=== PATIENT | female | born 1960 | race African-American/Black ===

== ENCOUNTER 2020-08-25 10:00 | Outpatient (RCR) | payer MEDICAID, SELFPAY | END 2020-08-26 11:21 | disposition other institution (70) | LOC: HO.PT 10:00 | PROVIDERS: PCP Internal Medicine; Visit Provider Internal Medicine | DX: M25.511 Pain in right shoulder (principal) | CPT/HCPCS: 97014; 97110; 97140 ==

== ENCOUNTER 2020-08-26 12:21 | Outpatient (REF) | payer MEDICAID, SELFPAY ==
--- NOTE | 2020-08-26 12:27 | MM_ITS ---
EXAMINATION: MM SCREENING DIGITAL BREAST TOMOSYNTHESIS, BILATERAL CLINICAL INFORMATION: Screening. Asymptomatic. Prior outside mammography from [place] currently unavailable. No known family history breast cancer. Personal history benign right breast excisional biopsy performed in [place] 1993. The lifetime risk of breast cancer based on the Tyrer-Cuzick Model is 6%. COMPARISON: None. TECHNIQUE: Digital breast tomosynthesis is performed in both the craniocaudal and mediolateral oblique views along with computer-aided detection (CAD). Synthesized 2D images are generated from the tomosynthesis. FINDINGS: There are scattered areas of fibroglandular density (ACR BI-RADS breast composition Category b). Breast tissue composition borders on predominantly fatty. There is no significant mass or architectural abnormality or abnormal calcifications. Fine benign appearing fibronodular stromal markings are present with the largest nodule only 5 mm, smooth and circumscribed, central right breast. The axilla and skin contours are unremarkable. MM/MM tomosynthesis screening BI IMPRESSION: Scattered benign-appearing fine fibronodular changes. No abnormal calcifications or architectural abnormality. ASSESSMENT: BI-RADS 2: Benign RECOMMENDATION: Routine annual mammography screening. This patient's information was entered into a reminder system with a target due date for their next mammogram.
== END 2020-08-26 12:22 | disposition home or self-care (01) ==
LOC: HO.MAMMO 12:21
PROVIDERS: PCP Internal Medicine; Visit Provider Internal Medicine
DX: Z12.31 Encounter for screening mammogram for malignant neoplasm of breast (principal)
CPT/HCPCS: 77063; 77067

== ENCOUNTER → 2020-08-30 13:00 | Outpatient (BNVA) | payer MEDICAID, SELFPAY | PROVIDERS: PCP Internal Medicine; Referring Provider Internal Medicine; Visit Provider Physician Assistant | DX: Z12.11 Encounter for screening for malignant neoplasm of colon (principal); E78.5 Hyperlipidemia, unspecified; I10 Essential (primary) hypertension; Z79.899 Other long term (current) drug therapy | CPT/HCPCS: 99212 ==

== ENCOUNTER → 2020-09-01 10:01 | Outpatient (BNVA) | payer MEDICAID, SELFPAY | PROVIDERS: Visit Provider Orthopaedic Surgery | DX: M75.41 Impingement syndrome of right shoulder (principal) | CPT/HCPCS: 20610; 99202; J1100 ==

== ENCOUNTER 2020-11-04 06:33 | Day surgery (SDC) | payer MEDICAID, SELFPAY ==
[2020-10-31 11:06] VITALS: BMI 39.0
--- NOTE | 2020-11-02 10:59 | HO.ANESPROP2 ---
Documented by User: Chari Weldon 11/02/20 11:00 HPI - Anesthesia Eval Consult details Narrative: 60yo F for Colonoscopy [facility] LAT[facility] Past Medical History Medical History Breast mass Dyslipidemia HTN (hypertension) Impingement syndrome of right shoulder Obesity Family History Family History Unknown No family history of colorectal cancer Surgical History Surgical History H/O tubal ligation History of cholecystectomy Social History Social History Alcohol intake: never Smoking Status: Former smoker Smoking Quit Date: 1996 Use of substances other than those prescribed or required for medical reasons: No Advance Directives: No Advance Directives Information Provided: No Advance Directives on File: No Current occupational status: unemployed Current occupation: right handed Meds Allergies Allergy/AdvReac Type Severity Reaction Status Date / Time No Known Allergies Allergy Verified 10/31/20 11:02 [No Known Allergies*] Home Medications Medication Instructions Recorded Confirmed Type lisinopril 40 mg tablet 40 mg PO DAILY 08/30/20 10/31/20 History famotidine 20 mg PO BEDTIME 10/31/20 10/31/20 History simvastatin 20 mg PO BEDTIME 10/31/20 10/31/20 History Exam Exam Date and Time: November 02, 2020 1059 Height,Weight and Vital Signs: Height 5 ft 6 in Weight 109.769 kg Assessment and Plan Assessment Anesthesia Assessment: Chart Reviewed Documented by User: Gabi Rice 11/04/20 08:22 [facility] Past Medical History Medical History Breast mass Dyslipidemia HTN (hypertension) Impingement syndrome of right shoulder Obesity Family History Family History Unknown No family history of colorectal cancer Surgical History Surgical History H/O tubal ligation History of cholecystectomy Social History Social History Alcohol intake: never Smoking Status: Former smoker Smoking Quit Date: 1996 Use of substances other than those prescribed or required for medical reasons: No Advance Directives: No Advance Directives Information Provided: No Advance Directives on File: No Current occupational status: unemployed Current occupation: right handed Meds Allergies Allergy/AdvReac Type Severity Reaction Status Date / Time No Known Allergies Allergy Verified 10/31/20 11:02 [No Known Allergies*] Home Medications Medication Instructions Recorded Confirmed Type lisinopril 40 mg tablet 40 mg PO DAILY 08/30/20 10/31/20 History famotidine 20 mg PO BEDTIME 10/31/20 10/31/20 History simvastatin 20 mg PO BEDTIME 10/31/20 10/31/20 History Exam Airway Mallampati Class: II TM Dist: >3cm Neck ROM: Full Assessment and Plan Assessment Anesthesia Assessment: Anesthesia Plan Discussed and Chart Reviewed Final Anesthetic Review NPO: Yes ASA Class: II Final Preanesthetic Review: No Changes in Pt Med Stat and Consent Obtained/Reviewed Patient Risk: Low Procedure Risk: Low Assessment/Block/Sedation in SS: Assess/Block/Sedation-SS Anesthetic Plan Anesthetic Plan: MAC: Disposition: Standard PACU
[2020-11-04 07:03] VITALS: BP 115/71; PULSE 79; RESP 18; TEMP 36.6
--- NOTE | 2020-11-04 08:10 | P.OP_ITS ---
Operative Note Operative Note Date of Service: 11/04/20 Narrative: Pre-op diagnosis: Colon cancer screening, constipation Post-op diagnosis: other (colon polyps, diverticulosis) Procedure: COLONOSCOPY TILL CECUM WITH BIOPSIES Consent: Indications for the procedure and potential complications of bleeding, perforation, reaction to medications and missed diagnosis were discussed with the patient with the help of a Finance Intern and informed consent was obtained. Instrument: Olympus PCF H 190 L variable stiffness pediatric colonoscope Monitoring: Vital signs and clinical assessment, intermittent blood pressure monitoring, continuous EKG monitoring, Pulse oximetry and Carbon Dioxide monitoring were done throughout the procedure. Colon withdrawl time was 15 minutes. Procedure: The patient was placed in the left lateral decubitis position and pre-procedure medications were administered. After a digital rectal examination of the ano-rectum, the video colonoscope was inserted into the rectum and advanced through the colon to the cecum. The colonoscope was slowly withdrawn in a retrograde panoramic fashion and the colon mucosa was carefully examined including a retroflexed view of the rectum. Findings and interventions are described below. Procedure Difficulty: Without difficulty Findings: Terminal Ileum: Not evaluated Cecum: Normal Ascending Colon: Normal Transverse Colon: A 3-4 mm sessile polyp removed with a cold bx. Descending Colon: Moderate diverticulosis Sigmoid Colon: Moderate diverticulosis Rectum: Normal Ano-rectum: Perianal skin tags Colon preparation: Good Impression and Post Procedure Diagnosis: Colonoscopy Findings: Two small polyps removed Moderate diverticulosis seen in the left colon Plan: Await pathology results Patient has an appointment on 11/24/20 in the GI Clinic with GAVIN Jesus. Repeat Colonoscopy interval based on path results - in 5 years if polyps are adenomatous and 10 years if polyps are hyperplastic. Above findings were reviewed with the patient and colon polyps and diverticulosis handouts were given in the discharge area Surgeon: Rickey Alfred MD Anesthesia: MAC (Dr Rice) Ornamental Ironworker Helper: Chay Werner Estimated blood loss (mL): 0 Pathology: other (A. TC polyp x 1, B. SC polyp x 1) Condition: stable Disposition: PACU
--- NOTE | 2020-11-04 08:10 | MHC.SHP ---
Pre-Procedural Eval Section A The patient is an INPATIENT: No The History & Physical has been completed within 30 days and I have reviewed it.: No Section B Chief Complaint: Screening Details of Present Illness: colon cancer screening, constipation Relevant Family History (Specify if Yes): No Present Medications: see Short Stay Collaborative assessment Medical History: Significant History (Breast mass Dyslipidemia HTN (hypertension)) History of Previous Operations: Relevant previous surgery/procedure and date(s) (Tubal ligation, cholecystectomy) Allergies: Allergies Allergy/AdvReac Type Severity Reaction Status Date / Time No Known Allergies Allergy Verified 10/31/20 11:02 [No Known Allergies*] Review of Systems Sugical H&P ROS: Negative: Constitution, Cardiovascular and Respiratory and Yes, Specify: Gastrointestinal (constipation) Exam Surgical H&P Exam: Normal: Heart, Normal: Lungs, Normal: Extremities and Normal: Abdomen Plan Diagnosis/Plan: Unchanged I have reviewed the history and physical and performed a pertinent physical examination on my patient. No changes have occurred unless specified.
[2020-11-04 09:12] VITALS: BP 101/49; PULSE 80; RESP 16; TEMP 36.1; O2SAT 98
[2020-11-04 09:27] VITALS: BP 118/76; PULSE 67; RESP 17; TEMP 36.2; O2SAT 97
--- NOTE | 2020-11-04 09:50 | HO.POSTANES ---
Post Anesthesia Evaluation Post Anesthesia Evaluation Vital Signs: Vital Signs Temp Pulse Resp BP Pulse Ox 11/04/20 09:27 97.2 F 67 17 118/76 97 11/04/20 09:12 97.0 F 80 16 101/49 L 98 11/04/20 07:03 98 F 79 18 115/71 Anesthesia: General (tiva) Mental Status: Awake Pain Control: Satisfactory Nausea/Vomiting: None Hydration: Adequate Anesthesia-Related Issues: No Anes. Related Issues
== END 2020-11-04 09:58 | disposition home or self-care (01) ==
PROVIDERS: PCP Internal Medicine; Visit Provider Internal Medicine Gastroenterology
PROC: 0DJD8ZZ Inspection of Lower Intestinal Tract, Via Natural or Artificial Opening Endoscopic (ICD-10-PCS; CPT 45378; principal; 2020-11-04 08:30)
DX: Z12.11 Encounter for screening for malignant neoplasm of colon (principal); K63.5 Polyp of colon; K57.30 Diverticulosis of large intestine without perforation or abscess without bleeding; K64.8 Other hemorrhoids; K59.00 Constipation, unspecified; I10 Essential (primary) hypertension; Z90.49 Acquired absence of other specified parts of digestive tract; Z79.899 Other long term (current) drug therapy; Z87.891 Personal history of nicotine dependence
CPT/HCPCS: 45380; 88305

== ENCOUNTER → 2020-11-24 13:00 | Outpatient (BNVA) | payer MEDICAID, SELFPAY | PROVIDERS: PCP Internal Medicine; Visit Provider Physician Assistant ==

== ENCOUNTER → 2020-12-01 08:24 | Outpatient (BNVA) | payer MEDICAID, SELFPAY | PROVIDERS: PCP Internal Medicine; Visit Provider Physician Assistant ==

== ENCOUNTER 2020-12-28 07:56 | Outpatient (REF) | payer MEDICAID, SELFPAY ==
--- NOTE | ~2020-12-28 | US_ITS ---
EXAMINATION: US ABDOMEN COMPLETE CLINICAL INFORMATION: Right upper quadrant pain. COMPARISON: None TECHNIQUE: Real-time imaging of the abdominal viscera. FINDINGS: PANCREAS: Normal. ABDOMINAL AORTA: The proximal, mid, and distal segments are normal in caliber. INFERIOR VENA CAVA: Visualized portions are normal. LIVER: The liver is normal in size. The liver contour is normal. Parenchymal echogenicity is increased. No focal hepatic lesion. There is no intrahepatic biliary duct dilatation seen. GALLBLADDER: Surgically removed. COMMON BILE DUCT: Normal in caliber measuring 0.5 cm in diameter. RIGHT KIDNEY: Normal. No hydronephrosis. No renal calculi or focal parenchymal lesions. The kidney measures 11 cm in maximum dimension. LEFT KIDNEY: Normal. No hydronephrosis. No renal calculi or focal parenchymal lesions. The kidney measures 12 cm in maximum dimension. SPLEEN: Normal. The spleen measures 11 cm in maximum dimension. FREE FLUID: None. US/US abdomen complete IMPRESSION: Echogenic liver probably representing fatty infiltration otherwise unremarkable exam.
== END 2020-12-28 07:57 | disposition home or self-care (01) ==
LOC: HO.US 07:56
PROVIDERS: PCP Internal Medicine; Visit Provider Physician Assistant
DX: R10.11 Right upper quadrant pain (principal); G89.29 Other chronic pain
CPT/HCPCS: 76700

== ENCOUNTER 2021-01-12 12:17 | Outpatient (REF) | payer MEDICAID, SELFPAY ==
--- NOTE | ~2021-01-12 | XR_ITS ---
EXAMINATION: AP KNEE STANDING AND RIGHT KNEE 2 VIEWS CLINICAL INFORMATION: Pain. COMPARISON: None. TECHNIQUE: AP bilateral knees standing one view. Right knee 2 views. FINDINGS: AP BILATERAL KNEE: There is a genu valgus deformity of both knees with severe loss of medial and lateral compartment joint space. There is moderate periarticular spurring. No loose bodies or bony erosive changes seen. No fracture noted. RIGHT KNEE: There is severe loss of patellofemoral compartment joint space with moderate periarticular spurring. There is a small to moderate joint effusion. No loose body seen. XR/XR knee RT 2V IMPRESSION: Significant advanced degenerative changes in the tricompartment right knee. There is small to moderate suprapatellar joint effusion. Advanced degenerative changes medial and lateral compartment, right knee. Genu valgus deformity of both knees on AP standing.
--- NOTE | ~2021-01-12 | XR_ITS ---
EXAMINATION: AP KNEE STANDING AND RIGHT KNEE 2 VIEWS CLINICAL INFORMATION: Pain. COMPARISON: None. TECHNIQUE: AP bilateral knees standing one view. Right knee 2 views. FINDINGS: AP BILATERAL KNEE: There is a genu valgus deformity of both knees with severe loss of medial and lateral compartment joint space. There is moderate periarticular spurring. No loose bodies or bony erosive changes seen. No fracture noted. RIGHT KNEE: There is severe loss of patellofemoral compartment joint space with moderate periarticular spurring. There is a small to moderate joint effusion. No loose body seen. XR/XR knee standing BI IMPRESSION: Significant advanced degenerative changes in the tricompartment right knee. There is small to moderate suprapatellar joint effusion. Advanced degenerative changes medial and lateral compartment, right knee. Genu valgus deformity of both knees on AP standing.
== END 2021-01-12 12:18 | disposition home or self-care (01) ==
LOC: HO.HOSX 12:17
PROVIDERS: PCP Internal Medicine; Visit Provider Orthopaedic Surgery
DX: M17.0 Bilateral primary osteoarthritis of knee (principal); M54.16 Radiculopathy, lumbar region
CPT/HCPCS: 73560; 73565; 99212

== ENCOUNTER 2021-01-19 14:52 | Outpatient (REF) | payer MEDICAID, SELFPAY ==
--- NOTE | ~2021-01-19 | MR_ITS ---
EXAMINATION: MR LUMBAR SPINE WITHOUT CONTRAST CLINICAL INFORMATION: Lumbar radiculopathy. COMPARISON: None available. TECHNIQUE: MRI of the lumbar spine was obtained using routine sequences without contrast. FINDINGS: Minimal right convex curvature of the lumbar spine. Mild degenerative grade 1 anterolisthesis of L4 on L5. Heterogeneous marrow signal. No focal marrow replacing lesions. Moderate degenerative disc disease at T11-T12 and L4-L5. Mild degenerative disc disease at all additional lumbar levels. Mild marrow edema within the posterior elements of L4-S1 suggestive of degenerative stress reaction. No additional suspicious marrow edema. The vertebral body heights are largely maintained. The conus medullaris terminates at the level of L1-L2. The distal spinal cord is normal in appearance. No significant abnormalities of the paraspinal musculature. Limited evaluation of the intra-abdominal structures without significant abnormalities. The abdominal aorta is of normal contour and caliber. AXIAL SPINAL LEVELS: L1-L2: Normal annular contour. There is mild bilateral facet joint arthropathy. There is no neural foraminal stenosis. There is no spinal canal stenosis. L2-L3: Normal annular contour. There is moderate bilateral facet joint arthropathy. There is mild right and no left neural foraminal stenosis. There is no spinal canal stenosis. L3-L4: Shallow diffuse disc bulge. There is moderate bilateral facet joint arthropathy. There is mild bilateral neural foraminal stenosis. There is mild spinal canal stenosis. L4-L5: Moderate diffuse disc bulge exacerbated by uncovering from anterolisthesis. Superimposed right foraminal disc protrusion There is moderate to severe right and moderate left facet joint arthropathy. There is mild bilateral neural foraminal stenosis. There is mild to moderate spinal canal stenosis. L5-S1: Shallow diffuse disc bulge. There is moderate bilateral facet joint arthropathy. There is no neural foraminal stenosis. There is no spinal canal stenosis. MR/MR lumbar spine wo con IMPRESSION: Moderate multilevel degenerative spondyloarthropathy of the lumbar spine as described in detail above. Most notably, there is mild to moderate spinal canal stenosis at L4-L5. Mild spinal canal stenosis at L3-L4. Mild neural foraminal stenoses from L2-L5.
== END 2021-01-19 14:53 | disposition home or self-care (01) ==
LOC: HO.MRI 14:52
PROVIDERS: Visit Provider Orthopaedic Surgery
DX: M54.16 Radiculopathy, lumbar region (principal)
CPT/HCPCS: 72148

== ENCOUNTER → 2021-02-03 08:58 | Outpatient (BNVA) | payer MEDICAID, SELFPAY | PROVIDERS: PCP Internal Medicine; Visit Provider Orthopaedic Surgery | DX: M54.16 Radiculopathy, lumbar region (principal) | CPT/HCPCS: 99212 ==

== ENCOUNTER 2021-02-17 14:00 | Outpatient (RCR) | payer MEDICAID, SELFPAY ==
--- NOTE | 2021-01-27 15:00 | MHC.PT.EP ---
[facility] [place] Office [place] Office [place] Office [address] [phone] F: [phone] F: [phone] F: [phone] F: [phone] Physical Therapy Plan of Care Date of Evaluation: 01/27/21 Date of Surgery: NA Diagnosis: Lumbar radiculopathy, arthritis of B knees and B primary OA of knee Assessment: 60 year old female referred for Lumbar radiculopathy, arthritis of B knees and B primary OA of knee . Pt report of having sciatic nerve pain since 2016 and B knees since 2008. She denies any recent trauma or falls. Examination reveals 9/10 pain in B knees with weight bearing activities, decreased B knee ROM, decreased strength in B LE, altered posture, gait and balance. She is limited in activities like walking, sit to stand and stair negotiation due to the above mentioned impairments. She would benefit from skilled therapy to improve her B LE ROM, strength, decrease pain, balance training and gait training. Frequency and Duration: The patient will be seen 2/week for 6 weeks Short Term Goals: 1. Pt will have 50% decrease in pain which will enable her to sleep better at night in 2 weeks. 2. Pt will demonstrate improvements by 20 degrees in B knee ROM which will enable her to negotiate stairs in 3 weeks. Assisted Goals: 1. Pt will be independent with HEP and will be able to maintain improvements between session in 4 weeks. 2. Pt will be able to walk and perform sit to stand transition with pain no more than 2/10 in 5 weeks. 2. Pt will be able to perform all her ADLS with minimal seated rest breaks between them in 6 weeks. Treatment Plan: Modalities to reduce pain, spasms and effusion. Manual therapy to restore motion and function. Therapeutic exercise to improve strength and flexibility. Neuromuscular re-education for posture and balance. Therapeutic activities to return to functional activities of daily living. Electronically signed by: Mere Varma DPT Please sign and return to therapist. Thank you for your referral.
--- NOTE | 2021-03-22 15:10 | MHC.PT.DC ---
[facility] [place] Office [place] Office [place] Office [address] 140 [facility] [phone] F: [phone] F: [phone] F: [phone] F: [phone] Physical Therapy Discharge Report Diagnosis: Lumbar radiculopathy, arthritis of B knees and B primary OA of knee Date of Surgery: NA Date of Evaluation: 01/27/21 Date of Discharge: 02/17/21 Treatments to Date: 4 Cancellations to Date: 0 No Shows to Date: 0 Discharge Status: Improved Function Independent with HEP Discharge Summary: Anay was traveling to [place] for a month. She was therefore issues written HEP and was d/c from therapy. She was educated on returning to therapy in case her symptoms still persists. Electronically signed by: Mere Varma, PT, DPT Please sign and return to therapist. Thank you for your referral.
== END 2021-03-22 15:23 | disposition other institution (70) ==
LOC: HO.PT 14:00
PROVIDERS: PCP Internal Medicine; Visit Provider Orthopaedic Surgery
DX: M54.16 Radiculopathy, lumbar region (principal); M17.0 Bilateral primary osteoarthritis of knee
CPT/HCPCS: 97110; 97112; 97162; 97530

== ENCOUNTER 2021-04-06 09:03 | Outpatient (REF) | payer MEDICAID, SELFPAY ==
[2021-04-06 14:40] LABS: CT PCR NOT DETECTED (Not Detect.); NG PCR NOT DETECTED (Not Detect.)
[2021-04-07 08:43] LABS: BV Int Neg Control Negative (Negative); BV Int Pos Control Positive (Positive)
[2021-04-12 10:17] LABS: HPV mRNA E6/E7 rflx Not Detected (Not Detected)
== END 2021-04-06 09:04 | disposition home or self-care (01) ==
LOC: HO.LAB 09:03
PROVIDERS: Visit Provider Advanced Practice Midwife
DX: Z01.419 Encounter for gynecological examination (general) (routine) without abnormal findings (principal); Z11.51 Encounter for screening for human papillomavirus (HPV)
CPT/HCPCS: 87480; 87491; 87510; 87591; 87624; 87660; 88142

== ENCOUNTER 2025-08-23 09:24 | Outpatient (REF) | payer MEDICARE, MEDICAID, SELFPAY ==
--- NOTE | ~2025-08-23 | XR_ITS ---
EXAMINATION: XR KNEE BILATERAL CLINICAL INFORMATION: B/L Knee OA COMPARISON: January 12, 2021 TECHNIQUE: AP bilateral standing view of the knees was obtained. Lateral and sunrise views both knees. FINDINGS: Joint space narrowing involving all compartments of the knees mostly on the lateral compartment with sclerosis and marginal osteophyte formation along the articular surface, right greater than the left knee. There is chondrocalcinosis in the menisci. There is a small volume suprapatellar bursa joint effusion, left knee. There is a moderate to large suprapatellar bursa joint effusion, right knee. Osteopenia versus osteoporosis. No lytic or blastic lesions. XR/XR Knee Bobby 3V IMPRESSION: Tricompartment osteoarthrosis, moderate to severe involving mostly the lateral compartments of both knees. Concerning CPPD. Bilateral suprapatellar bursa joint effusions, moderate to large in the right knee and small volume on the left knee. Electronically signed by: Fidel Moore MD 08/23/2025 01:49 PM EDT
== END 2025-08-23 09:25 | disposition home or self-care (01) ==
LOC: HO.HOSX 09:24
DX: M17.0 Bilateral primary osteoarthritis of knee (principal)
CPT/HCPCS: 20610; 73562; 99202; J0665; J1100; J2003

== ENCOUNTER 2025-08-23 13:32 | Outpatient (AMB) | payer MEDICARE, MEDICAID, SELFPAY ==
--- NOTE | 2025-08-23 13:48 | MHC.OFFVIS ---
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 Patient complains of pain on the lateral aspect of the right knee. Patient also complains of clicking and giving away. She reports since her fall in the September certain movements feel like something is inside. She has been using a knee brace and did PT while in [place] with minimal relief. She has a history of avulsion fracture at the level of the tibial tuberosity as shown on CT from 10/13/24 per her records from [place]. She denies previous surgeries to the right knee. Patient interested on a cortisone injection today. 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 Patient complains of pain on the lateral aspect of the right knee. Patient also complains of clicking and giving away. She reports since her fall in the September certain movements feel like something is inside. She has been using a knee brace and did PT while in [place] with minimal relief. Not interested in any further physical therapy today. She has a history of avulsion fracture at the level of the tibial tuberosity as shown on CT from 10/13/24 per her records from [place]. She denies previous surgeries to the right knee. Patient interested on a cortisone injection today. [facility] Medical History (Updated 09/07/25 @ 17:07 by GAVIN Rodrigues) Edema of lower extremity Osteoarthritis Annual physical exam Screening for cervical cancer Osteoporosis Arthritis of both knees Lumbar radiculopathy Chronic right upper quadrant pain Obesity Impingement syndrome of right shoulder Breast mass HTN (hypertension) Dyslipidemia Surgical History History of colonoscopy (~11/04/20) History of cholecystectomy H/O tubal ligation Family History (Updated 09/03/25 @ 10:52 by Kenisha Mccormick MA) Mother No problems noted. Father No problems noted. Social History Household Members: Children Household Members Other:: grandchild. Housing: House Alcohol intake: former Patient Tobacco Use Status: Former Tobacco user e-Cigarette/Vaping Use: Former Use Current occupational status: unemployed Current occupation: right handed Cognitive needs: No Hearing needs: No Vision needs: Yes (rx glasses) Female Reproductive History Menstrual Age of Menarche: 11 Physical Exam Vital Signs: BMI result Body Mass Index 36.6 Extrem Other: Patient's right knee normal to inspection No erythema, ecchymosis, edema noted No lacerations, abrasions, open areas No evidence of infection Patient reports no tenderness to palpation of the right knee, including the medial and lateral joint lines, quad and patellar tendon, patella, and posterior knee Patient is able to extend to approximately 10 degrees and flex to approximately 90 degrees without difficulty Distal sensation intact Capillary refill brisk Office Procedures Joint Inj/Aspir; Non-Pain Clin Joint Injection/Drain Prep: site was prepped using aseptic technique and injection warnings given Approach Used: anterolateral Procedure: The patient tolerated the procedure well and there was some relief with the local anesthesia Shoulders, Hips, Knees, Knee Large Joint Injection [id number]: Right Knee Coding Procedure code (CPT) selection complete Assessment & Plan Assessment & Plan (1) Bilateral primary osteoarthritis of knee: Code(s): M17.0 - Bilateral primary osteoarthritis of knee Category: Medical Plan 1. Right knee osteoarthritis The risks and benefits of a steroid injection including but not limited to risk of damage to blood vessels, nerves, tendons, infection, skin bleaching, failure to improve symptoms, increased pain, and possible need for further injections or other intervention were discussed with the patient and the patient wishes to proceed with the steroid injection. Once consent was obtained, I aseptically prepped the area over the anterolateral joint line of the right knee. I then injected the area over the lateral epicondyle with a combination of 40 mg of dexamethasone and 8 mL of 1% lidocaine. The patient tolerated the procedure well with no complications. If the patient continues to experience symptoms over the following few weeks or months, they can make an appointment to return and discuss alternative treatment measures, such as physical therapy. Follow-up prn Orders: Orders XR Knee Bobby 3V 08/23/25 M25.569 - Pain in unspecified knee Coding Level of Care Code New Pt Level 3 (04642) Diagnoses Bilateral primary osteoarthritis of knee M17.0 CPT Codes Shoulders, Hips, Knees, - Knee Large Joint Injection : Right Knee ([id number])
[2025-08-23 13:50] VITALS: BMI 36.6
== END 2025-08-23 14:17 | disposition home or self-care (01) ==
LOC: HO.HOS 13:33
DX: M17.11 Unilateral primary osteoarthritis, right knee (principal)
CPT/HCPCS: 20610; 99203

== ENCOUNTER → 2025-08-23 13:36 | Outpatient (BNV) | payer MEDICARE, MEDICAID, SELFPAY | PROVIDERS: Visit Provider Radiology Diagnostic Radiology | DX: M17.0 Bilateral primary osteoarthritis of knee (principal) | CPT/HCPCS: 73562 ==

== ENCOUNTER 2025-09-03 10:24 | Outpatient (AMB) | payer MEDICARE, MEDICAID, SELFPAY ==
[2025-09-03 10:28] VITALS: BP 126/67; PULSE 77; TEMP 36.6; O2SAT 98; BMI 37.1
--- NOTE | 2025-09-03 10:28 | MHC.PC.OV ---
Vital Signs 09/03/25 10:28 Height 5 ft 6 in Weight 230 lb BMI 37.1 BP 126/67 Blood Pressure Location Lt brachial Position Sitting Pulse 77 Pulse Source Pulse Oximeter Temp 98 F Temp Source Temporal Artery Scan Pulse Oximetry (%) 98 Oxygen Delivery Method Room Air Intake Visit Reasons: New Patient - see comments Lithographic Retoucher Apprentice Required: Yes Lithographic Retoucher Apprentice Name: her grand child Accompanied by: Grand Child Allergies No Known Allergies (No Known Allergies*) Allergy (Verified 09/03/25 10:28) Tobacco use date assessed: 09/03/25 Fall risk assessment: 1 Fall in past year Last assessed Fall Risk: 09/03/25 Dental Screening Dental Screen Date: 09/03/25 Did you have a dental visit in the last 12 months?: No Did you have a dental problem in the last 6 months where you did not have access to dental care?: No HPI HPI Comments History of Present Illness Details The patient is a 65-year-old female presenting for a new patient annual physical and chronic condition management. The patient's primary complaint is joint pain in both knees, feet, and shoulders, which is exacerbated by prolonged standing. Knee x-rays show evidence of calcium pyrophosphate deposition (CPPD) and osteoarthritis. She reports the arthritis pain is worsening and experiences only slight relief from ibuprofen 600 mg every 8 hours and gabapentin 100 mg twice daily. Her pain has been more severe since a fall last year, which worsened one leg. She has a history of a lower extremity fracture and has received knee injections from an orthopedist. Her chronic conditions include hypertension managed with lisinopril 40 mg and chlorthalidone 50 mg, hyperlipidemia treated with atorvastatin 40 mg, and acid reflux managed with omeprazole 20 mg. She also takes iron and folic acid for low levels. Regarding health maintenance, her last mammogram in November of this year was BI-RADS 2, with recommendations for yearly screening. Her last colonoscopy was in 2019 at this hospital, with another one performed last year in [place], and she is not due for another until 2030. She is due for a Pap smear. Medical History: - Hypertension - Hyperlipidemia - Gastroesophageal reflux disease - Osteoarthritis with calcium pyrophosphate deposition (CPPD) - History of lower extremity fracture - Low iron and folic acid levels Surgical History: - Tubal ligation - Bladder surgery Medications: - Atorvastatin 40 mg for high cholesterol - Chlorthalidone 50 mg for high blood pressure - Iron supplement - Folic acid supplement - Vitamin C supplement - Gabapentin 100 mg twice a day for joint pain - Ibuprofen 600 mg every 8 hours for joint pain - Lisinopril 40 mg for high blood pressure - Omeprazole 20 mg for acid reflux Family History: - Reports a family member had cancer that started in the lungs - Denies family history of heart disease or diabetes Diagnostic Results: - Knee X-rays: Show CPPD, consistent with osteoarthritis. - Mammogram (November of this year): BI-RADS 2, benign finding. - Colonoscopy (2019): Normal, not due again until 2030. Social History: - Tobacco use: Denies ever smoking. - Alcohol use: Denies current alcohol consumption. - Illicit substance use: Denies use of heroin, marijuana, or cocaine. - Diet: Advised to eat a healthy diet for high cholesterol. - Exercise: Advised to stay active despite pain. [facility] Medical History (Updated 09/03/25 @ 11:31 by Mino Neal MD) Edema of lower extremity Osteoarthritis Annual physical exam Screening for cervical cancer Osteoporosis Arthritis of both knees Lumbar radiculopathy Chronic right upper quadrant pain Obesity Impingement syndrome of right shoulder Breast mass HTN (hypertension) Dyslipidemia Surgical History History of colonoscopy (~11/04/20) History of cholecystectomy H/O tubal ligation Family History (Updated 09/03/25 @ 10:52 by Kenisha Mccormick MA) Mother No problems noted. Father No problems noted. Social History Household Members: Children Household Members Other:: grandchild. Housing: House Alcohol intake: former Patient Tobacco Use Status: Former Tobacco user e-Cigarette/Vaping Use: Former Use Current occupational status: unemployed Current occupation: right handed Cognitive needs: No Hearing needs: No Vision needs: Yes (rx glasses) Female Reproductive History Menstrual Age of Menarche: 11 Questionnaire PHQ-9 Over the last 2 weeks, how often have you been bothered by any of the following problems? 1. Little interest or pleasure in doing things: not at all 2. Feeling down, depressed, or hopeless: not at all 3. Trouble falling or staying asleep, or sleeping too much: not at all 4. Feeling tired or having little energy: not at all 5. Poor appetite or overeating: not at all 6. Feeling bad about yourself - or that you are a failure or have let yourself or your family down: not at all 7. Trouble concentrating on things, such as reading the newspaper or watching television: not at all 8. Moving or speaking so slowly that other people could have noticed. Or the opposite - being so fidgety or restless that you have been moving around a lot more than usual: not at all 9. Thoughts that you would be better off or of hurting yourself in some way: not at all Total score: 0 Depression Screening Interpretation: Negative Depression Screening Done: Yes 28379 - PHQ-9 Billing: Yes Source: Developed by Drs. Ricardo Mayes, Celina Oshea, Feliciano Curtis and colleagues, with an educational santos from [employer]. Thrive Questionnaire Date Thrive assessed: 09/03/25 I am a: Patient What is your living situation today?: I have a steady place to live Within the past 12 months, did the food you bought not last and you didn't have the money to get more?: Never true Within the past 12 months, did you worry whether your food would run out before you got money to buy more?: Never true Do you have trouble paying for medicines?: No Do you have trouble getting transportation to medical appointments?: No Do you have trouble paying your heating and electricity bill?: No Do you have trouble taking care of your child, family member or friend?: No Do you have trouble with day-to-day activities such as bathing, preparing meals, shopping, managing finances, etc.?: No Are you currently unemployed and looking for a job?: No Are you interested in more education?: No THRIVE Score: 0 AUDIT C Alcohol Use Questionnaire (AUDIT-C) 1. How often do you have a drink containing alcohol?: Never 3. How often do you have six or more drinks on one occasion?: Never Total Score: 0 Score Reviewed/Action Taken: Yes LILI-7 AMB Questionnaire LILI-7 Date LILI - 7 assessed: 09/03/25 Feeling nervous, anxious, or on edge: 0 = Not at all Not being able to stop or control worryin = Not at all Worrying too much about different things: 0 = Not at all Trouble relaxin = Not at all Being so restless that it is hard to sit still: 0 = Not at all Becoming easily annoyed or irritable: 0 = Not at all Feeling afraid as if something awful might happen: 0 = Not at all Total LILI-7 score (0-4 normal; 5-9 mild; 10-14 moderate; 15-21 severe): 0 Source: Developed by Drs. Ricardo Mayes, Celina Oshea, Feliciano Curtis and colleagues, with an educational santos from [employer]. LILI-7 Assessment Billing LILI-7 Assessment Tool: LILI-7 Assessment 71063 Review of Systems Narrative - Musculoskeletal: Reports pain in both knees, feet, and shoulders. - Extremities: Reports swelling in the legs. - Gastrointestinal: Reports normal bowel movements. - Genitourinary: Reports normal urination. - Psychiatric: Denies symptoms of depression or anxiety. - Respiratory: Denies shortness of breath. All systems reviewed & are unremarkable except as reviewed in HPI and above Physical exam (Primary Care) Vital Signs: Last Vital Signs Temp 98 F 09/03/25 10:28 Pulse 77 09/03/25 10:28 BP 126/67 09/03/25 10:28 Pulse Ox 98 09/03/25 10:28 Oxygen Delivery Method Room Air 09/03/25 10:28 BMI result Body Mass Index 37.1 Tobacco/Smoking Status: Tobacco use Status Tobacco use date assessed 09/03/25 09/03/25 10:30 Patient Tobacco Use Status Former Tobacco user 09/03/25 10:30 e-Cigarette/Vaping Use Former Use 09/03/25 10:30 PHQ-9: PHQ-9 Score PHQ-9: Total score 0 09/03/25 10:30 Depression Screening Interpretation: Negative Thrive Assessment: Date of Thrive Assessment Date Thrive assessed 09/03/25 09/03/25 10:30 Narrative General: +Alert and oriented, Well nourished, No acute distress. Eye: Pupils are equal, round and reactive to light, Intact accommodation, Extraocular movements are intact, Normal conjunctiva, Vision unchanged. HENT: Normocephalic, Atraumatic, Tympanic membranes are clear, Normal hearing, Oral mucosa is moist, No pharyngeal erythema, Ear canals patent. Respiratory: Lungs CTA bilaterally, No wheeze, Respirations are non-labored. Cardiovascular: Regular rate, Regular rhythm, S1 auscultated, S2 auscultated, No murmur, Good pulses equal in all extremities, Normal peripheral perfusion, Some swelling in legs. Gastrointestinal: Soft, Non-tender, Non-distended, Normal bowel sounds, No organomegaly. Musculoskeletal: Normal range of motion, Normal strength, No tenderness, No swelling, No deformity, Normal gait, Pain in both knees, shoulders, and foot, Osteoarthritis in knees, History of fracture in lower extremities. Integumentary: Warm, Dry, [place], Intact. Neurologic: Alert, Oriented, Normal sensory, Normal motor function, No focal defects, Cranial Nerves II-XII are grossly intact, Normal deep tendon reflexes. Psychiatric: Cooperative, Appropriate mood & affect, Normal judgment. Coding Level of Care Code New Pt Level 4 (79486) New Pt Prev Care >65yr (08840) Diagnoses Other type of osteoarthritis, unspecified site M19.90 Osteoarthritis location: unspecified site Osteoarthritis type: other Primary hypertension I10 Hypertension type: primary hypertension Dyslipidemia E78.5 Gastroesophageal reflux disease without esophagitis K21.9 Esophagitis presence: without esophagitis Edema of lower extremity R60.0 Annual physical exam Z00.00 Additional Codes PHQ-9 - 76165 - PHQ-9 Billing: Yes ([id number]) LILI-7 Assessment Billing - LILI-7 Assessment Tool: LILI-7 Assessment 89808 ([id number]) Comment [id number] Assessment & Plan Assessment & Plan (1) Osteoarthritis: Comment: - The patient reports worsening pain in her knees, feet, and shoulders, with only minor relief from her current medications. - X-ray findings confirm osteoarthritis. - The plan is to increase gabapentin to 100 mg three times daily. - She will continue to follow up with her orthopedist for specialized management, including potential surgery. Code(s): M19.90 - Unspecified osteoarthritis, unspecified site Category: Medical Qualifiers: Osteoarthritis location: unspecified site Osteoarthritis type: other Qualified Code(s): M19.90 - Unspecified osteoarthritis, unspecified site (2) HTN (hypertension): Comment: - Her blood pressure is well-controlled on her current regimen. - The plan is to continue her current medications, including chlorthalidone 50 mg and lisinopril 40 mg. Code(s): I10 - Essential (primary) hypertension Category: Medical Qualifiers: Hypertension type: primary hypertension Qualified Code(s): I10 - Essential (primary) hypertension (3) Dyslipidemia: Comment: - Condition is managed with medication. - The plan is to continue atorvastatin 40 mg and licensed professional counselor on a healthy diet. Code(s): E78.5 - Hyperlipidemia, unspecified Category: Medical (4) Acid reflux: Comment: - Symptoms are well-managed. - The plan is to continue omeprazole 20 mg. Code(s): K21.9 - Gastro-esophageal reflux disease without esophagitis Category: Medical Qualifiers: Esophagitis presence: without esophagitis Qualified Code(s): K21.9 - Gastro-esophageal reflux disease without esophagitis (5) Edema of lower extremity: Comment: - The patient has swelling in her legs. - The plan is to advise leg elevation when sitting and encourage movement. Code(s): R60.0 - Localized edema Category: Medical (6) Annual physical exam: Comment: - As this is a new patient annual physical, a comprehensive plan is in place. - Orders were placed for comprehensive blood work today (including electrolytes, CBC, hepatitis, HIV, syphilis, vitamin D, and thyroid), a mammogram for March, and a bone density scan. - A referral was made to [facility] for a Pap smear. - The patient was advised to get her flu and COVID-19 vaccinations. - Lifestyle modifications, including healthy eating and staying active, were also discussed. - A follow-up is scheduled in 3 months. Code(s): Z00.00 - Encounter for general adult medical examination without abnormal findings Category: Medical Plan: Health Maintenance: - Mammogram: Had a BI-RADS 2 result in November of this year; a new order was placed for March. - Colonoscopy: Last performed in 2019 and last year; not due until 2030. - cervical cancer screening: Due for a Pap smear; a referral to an [facility] was placed. - Osteoporosis screening: An order for a bone density scan was placed to assess fracture risk. - Vaccinations: Advised to get the flu and COVID-19 shots. - Labs: Comprehensive blood work ordered, including electrolytes, CBC, hepatitis panel, HIV, syphilis, vitamin D, and thyroid studies. - Lifestyle: Counseled on healthy eating for cholesterol and staying active despite joint pain. Patient was informed and verbally consented to the use of an ambient scribe for clinic note documentation during this visit. Vital signs reviewed. Comprehensive history, review of systems, and physical exam completed. Medications, allergies, and problem list reviewed and updated. Counseling provided on nutrition, regular exercise, sleep hygiene, and moderation of alcohol use. Discussed age-appropriate screenings (mammogram, colonoscopy, Pap, bone density) and immunizations (flu, COVID, shingles, Tdap). Screened for depression, fall risk, and home safety; no current concerns. Discussed stress management, dental and vision care, and importance of ongoing preventive follow-up. Routine labs ordered for metabolic and lipid screening. Patient educated on healthy lifestyle and agrees with the plan. Plan I conducted a new patient visit with the patient and her grandson today. We discussed her chronic conditions, including hypertension, hyperlipidemia, and GERD, and I advised her to continue all her current medications. Her primary concern is worsening joint pain due to osteoarthritis, and we agreed to increase her gabapentin dose to three times a day for better symptom management. I advised her to continue management with her orthopedist, who can address the need for further interventions like surgery. I reviewed her health screenings and determined she needs a Pap smear, for which I placed a referral. I also placed orders for a mammogram in March and a bone density scan. We discussed lifestyle measures, including leg elevation for her swelling, staying active, healthy eating, and obtaining her flu and COVID vaccines. A follow-up appointment is scheduled in three months. I ordered comprehensive lab work to be drawn today and informed them that I would call with any abnormal results. Orders: Orders XR DEXA axial skeleton Today M81.0 - Age-related osteoporosis without current pathological fracture Hemoglobin A1c Today Z00.00 - Encounter for general adult medical examination without abnormal findings HIV Ab/Ag Today Z00.00 - Encounter for general adult medical examination without abnormal findings Vitamin D 25-OH Total Today Z00.00 - Encounter for general adult medical examination without abnormal findings MM screening mammo BI 3 Months Z12.31 - Encounter for screening mammogram for malignant neoplasm of breast Complete Blood Count Auto Diff Today Z00.00 - Encounter for general adult medical examination without abnormal findings Comprehensive Met. Panel Today Z00.00 - Encounter for general adult medical examination without abnormal findings Hepatitis A,B,C Profile Today Z00.00 - Encounter for general adult medical examination without abnormal findings Lipid Panel Today Z00.00 - Encounter for general adult medical examination without abnormal findings Microalbumin, Random (w Creat) Today Z00.00 - Encounter for general adult medical examination without abnormal findings Syphilis Screen Today Z00.00 - Encounter for general adult medical examination without abnormal findings TSH reflex Free T4 Today Z00.00 - Encounter for general adult medical examination without abnormal findings Referrals [facility] Referral Z12.4 - Encounter for screening for malignant neoplasm of cervix Medications: New gabapentin 100 mg PO TID 90 caps 0RF Patient Instructions: - Take your gabapentin 100 mg three times a day for joint pain. - Continue taking all your other medications as prescribed. - Go to the lab across the [place] to have your blood drawn today. We will call you if anything is wrong with the results. - We have placed an order for you to get a mammogram in March. - We have placed an order for a bone scan to check your bone health. - We are referring you to a women's health clinic ([facility]) for a Pap smear. - Please get your flu shot and COVID vaccine at the pharmacy. - To help with the swelling in your legs, put your feet up on a stool when you are sitting. - Continue to eat healthy and stay as active as you can, even if you have some pain. - You have a follow-up appointment with us in three months.
== END 2025-09-03 11:17 | disposition home or self-care (01) ==
LOC: HO.HMCHD 10:24
PROVIDERS: PCP Student in an Organized Health Care Education/Training Program; Visit Provider Student in an Organized Health Care Education/Training Program
DX: Z00.00 Encounter for general adult medical examination without abnormal findings (principal); M19.90 Unspecified osteoarthritis, unspecified site; I10 Essential (primary) hypertension; E78.5 Hyperlipidemia, unspecified; K21.9 Gastro-esophageal reflux disease without esophagitis; R60.0 Localized edema

== ENCOUNTER → 2025-09-03 10:24 | Outpatient (BNVA) | payer MEDICARE, MEDICAID, SELFPAY | PROVIDERS: PCP Student in an Organized Health Care Education/Training Program; Visit Provider Student in an Organized Health Care Education/Training Program | DX: Z00.00 Encounter for general adult medical examination without abnormal findings (principal); M19.90 Unspecified osteoarthritis, unspecified site; I10 Essential (primary) hypertension; E78.5 Hyperlipidemia, unspecified; K21.9 Gastro-esophageal reflux disease without esophagitis; R60.0 Localized edema; Z79.899 Other long term (current) drug therapy; Z13.31 Encounter for screening for depression; Z13.39 Encounter for screening examination for other mental health and behavioral disorders | CPT/HCPCS: 96127; 99202; 99387 ==

== ENCOUNTER 2025-09-03 11:33 | Outpatient (REF) | payer MEDICARE, MEDICAID, SELFPAY ==
[2025-09-03 13:08] LABS: MANUAL DIFF FLAG NO
[2025-09-03 13:50] LABS: Hematocrit 36.8 % (37.0-47.0); Hemoglobin 11.6 g/dl (12.0-16.0); Imm Gran Abs Auto 0.01 X10*3/uL (0.00-0.03); Imm Gran Pct Auto 0.3 % (0.0-0.4); Lymphocytes Absolute Auto 1.4 X10*3/uL (1.2-4.9); Mean Corpuscular HGB Conc 31.5 g/dl (31.0-35.0); Mean Corpuscular Hemoglobin 26.9 pg (27.0-33.0); Mean Corpuscular Volume 85.2 fL (80.0-98.0); NRBC Abs Auto 0.000 X10*3/uL (0.0-0.012); NRBC Pct Auto 0.0 /100WBC (0.0-0.2); Platelet Count 248 X10*3/uL (160-400); Red Blood Count 4.32 X10*6/uL (4.20-5.50); White Blood Count 3.6 X10*3/uL (4.8-10.8)
[2025-09-03 13:59] LABS: Alanine Aminotransferase 29 U/L (0-31); Albumin Level 4.3 g/dL (3.5-5.0); Alkaline Phosphatase 122 U/L (39-117); Anion Gap 12 (12-20); Aspartate Amino Transferase 25 U/L (5-31); Blood Urea Nitrogen 31 mg/dL (9-16); Calcium 9.6 mg/dL (8.4-10.2); Carbon Dioxide 30 mmol/L (22-29); Chloride 104 mmol/L (96-108); Cholesterol 174 mg/dL (<200); Estimated Glomerular Filt Rate > 60; HDL Cholesterol 56 mg/dL (>40); Potassium 3.7 mmol/L (3.3-5.1); Sodium 142 mmol/L (135-145); Total Protein 7.4 g/dL (6.5-8.0); Triglycerides 139 mg/dL (<150)
[2025-09-05 03:52] LABS: Syphilis Screen Nonreactive (Nonreactive)
[2025-09-05 04:21] LABS: HBS Num1 0.00 mIU/mL (0-7.99); HBc Num1 0.09 S/CO (0.00-0.79); HBsAGNum1 0.43 S/CO (0.00-0.99); HIV Num 1 0.05 S/CO (0.00-0.99); Hepatitis A Antibody IgM 0.22 Index (0-0.79); Hepatitis B Surface Antigen Negative (Negative); ~HepC Num1 0.21 S/CO (0.00-0.79); ~Hepatitis A Antibody IgM Nonreactive (Nonreactive); ~Hepatitis B Surface Antibody NONREACTIVE (Nonreactive); ~Hepatitis C Antibody Nonreactive (Nonreactive)
== END 2025-09-03 11:34 | disposition home or self-care (01) ==
LOC: HO.10HDL 11:33
PROVIDERS: Visit Provider Student in an Organized Health Care Education/Training Program
DX: Z00.00 Encounter for general adult medical examination without abnormal findings (principal); I10 Essential (primary) hypertension; E78.5 Hyperlipidemia, unspecified; K21.9 Gastro-esophageal reflux disease without esophagitis; M19.90 Unspecified osteoarthritis, unspecified site; R60.0 Localized edema; Z79.899 Other long term (current) drug therapy; Z13.31 Encounter for screening for depression; Z13.39 Encounter for screening examination for other mental health and behavioral disorders
CPT/HCPCS: 36415; 80053; 80061; 82043; 82306; 82570; 83036; 84443; 85025; 86704; 86706; 86709; 86780; 86803; 87340; 87389; 96127; 99202; 99387

== ENCOUNTER 2025-09-13 13:02 | Outpatient (AMB) | payer MEDICARE, MEDICAID, SELFPAY ==
[2025-09-13 13:03] VITALS: BMI 37.1
--- NOTE | 2025-09-13 13:03 | A.OFFVIS_ITS ---
Vital Signs 09/13/25 13:03 Height 5 ft 6 in Weight 230 lb BMI 37.1 Intake Visit Reasons: OV-B/L Knee Pain, RT knee inj 08/23/25 Intake Note: Anay is a 65 year old Israeli-speaking female who presents today for Follow Up of her Bilateral Knee Osteoarthritis. Patient was last seen on 08/23/25. At that time she was given a right knee steroid injection. Patient reports the injection only gave her relief for one week. She mentions she already did physical therapy in April,, while living in [place]. Patient reports she would like a left knee injection and possibly try gel injections after. 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 Patient was last seen on 08/23/25. At that time she was given a right knee steroid injection. Patient reports the injection only gave her relief for one week. She mentions she already did physical therapy in April,, while living in [place]. Patient reports she would like a left knee injection and possibly try gel injections after. No other acute complaints or concerns at this time [facility] Medical History (Updated 09/07/25 @ 17:07 by GAVIN Rodrigues) Edema of lower extremity Osteoarthritis Annual physical exam Screening for cervical cancer Osteoporosis Arthritis of both knees Lumbar radiculopathy Chronic right upper quadrant pain Obesity Impingement syndrome of right shoulder Breast mass HTN (hypertension) Dyslipidemia Surgical History History of colonoscopy (~11/04/20) History of cholecystectomy H/O tubal ligation Family History (Updated 09/03/25 @ 10:52 by Kenisha Mccormick MA) Mother No problems noted. Father No problems noted. Social History Household Members: Children Household Members Other:: grandchild. Housing: House Alcohol intake: former Patient Tobacco Use Status: Former Tobacco user e-Cigarette/Vaping Use: Former Use Current occupational status: unemployed Current occupation: right handed Cognitive needs: No Hearing needs: No Vision needs: Yes (rx glasses) Female Reproductive History Menstrual Age of Menarche: 11 Review of Systems Const All systems reviewed & are unremarkable except as noted in HPI and below Physical Exam Vital Signs: BMI result Body Mass Index 37.1 Office Procedures Joint Inj/Aspir; Non-Pain Clin Joint Injection/Drain Prep: site was prepped using aseptic technique and injection warnings given Approach Used: anterolateral Procedure: The patient tolerated the procedure well, but had some pain with the injection and there was some relief with the local anesthesia Shoulders, Hips, Knees, Knee Large Joint Injection 50336: Left Knee Coding Procedure code (CPT) selection complete Assessment & Plan Assessment & Plan (1) Bilateral primary osteoarthritis of knee: Code(s): M17.0 - Bilateral primary osteoarthritis of knee Category: Medical Plan 1. Right knee osteoarthritis The risks and benefits of a steroid injection including but not limited to risk of damage to blood vessels, nerves, tendons, infection, skin bleaching, failure to improve symptoms, increased pain, and possible need for further injections or other intervention were discussed with the patient and the patient wishes to proceed with the steroid injection. Once consent was obtained, I aseptically prepped the area over the anterolateral joint line of the left knee. I then injected the anterolateral joint line with a combination of 40 mg of dexamethasone and 8 mL of 1% lidocaine. The patient tolerated the procedure well with no complications. If the patient continues to experience symptoms over the following few weeks or months, they can make an appointment to return and discuss alternative treatment measures, such as physical therapy. Follow-up prn Coding Level of Care Code Procedure Only Diagnoses Bilateral primary osteoarthritis of knee M17.0 CPT Codes Shoulders, Hips, Knees, - Knee Large Joint Injection 12154: Left Knee ([id number])
== END 2025-09-13 13:25 | disposition home or self-care (01) ==
LOC: HO.HOS 13:02
PROVIDERS: PCP Student in an Organized Health Care Education/Training Program
DX: M17.0 Bilateral primary osteoarthritis of knee (principal)
CPT/HCPCS: 20610

== ENCOUNTER → 2025-09-13 13:02 | Outpatient (BNVA) | payer MEDICARE, MEDICAID, SELFPAY | PROVIDERS: PCP Student in an Organized Health Care Education/Training Program | DX: M17.0 Bilateral primary osteoarthritis of knee (principal) | CPT/HCPCS: 20610; J0665; J1100; J2003 ==